=== PATIENT | female | born 1990 | race Caucasian/White ===

== ENCOUNTER 2020-05-07 06:51 | Outpatient (CLI) | payer OTHER ==
[2020-05-07] MEDS ORDERED: PRENATAL TABLE1 EAC1 PO (07:02)
== END 2020-05-07 12:00 | disposition home or self-care (01) ==
LOC: OBS/DEL 06:51
PROVIDERS: ATTEND Specialist
DX: O47.1 False labor at or after 37 completed weeks of gestation (principal)

== ENCOUNTER 2020-05-08 11:06 | Outpatient (CLI) | payer OTHER ==
[~2020-05-08 11:06] MED LIST: PRENATAL TABLE1 EAC1 PO
== END 2020-05-08 13:04 | disposition home or self-care (01) ==
LOC: NST 11:06
PROVIDERS: ATTEND Specialist
DX: Z34.83 Encounter for supervision of other normal pregnancy, third trimester (principal)

== ENCOUNTER 2020-05-09 13:45 | Inpatient (IN) | payer OTHER ==
[~2020-05-09] VITALS: Ht 172.7 cm; Wt 83.9 kg
== END 2020-05-12 13:24 | disposition home or self-care (01) | DRG 805 ==
LOC: LDR 05-10 10:03 → OB/GYN 05-10 10:03
PROVIDERS: ADMIT Specialist; ATTEND Specialist
PROC: 10E0XZZ Delivery of Products of Conception, External Approach (ICD-10-PCS; principal; 2020-05-10)
PROC: 0HQ9XZZ Repair Perineum Skin, External Approach (ICD-10-PCS; 2020-05-10)
PROC: 4A1HXFZ Monitoring of Products of Conception, Cardiac Rhythm, External Approach (ICD-10-PCS; 2020-05-10)
DX: O70.0 First degree perineal laceration during delivery (principal); U07.1 COVID-19; Z37.0 Single live birth; O98.52 Other viral diseases complicating childbirth; O24.410 Gestational diabetes mellitus in pregnancy, diet controlled; Z3A.38 38 weeks gestation of pregnancy